=== PATIENT | male | born 1945 | race Caucasian/White ===

== ENCOUNTER 2020-08-21 10:44 | Emergency (ER) | payer MEDICARE, OTHER ==
[2020-08-21 12:56] LABS: RED BLOOD COUNT 4.73 M/UL (4.20-5.50); WHITE BLOOD COUNT 13.5 K/UL (4.5-11.0)
[2020-08-21 13:17] LABS: BUN/CREATININE RATIO 17 (0-10)
[2020-08-21] MEDS ORDERED: TESSALON PERLE100 MG PO (15:05)
[2020-08-21] MEDS ORDERED: PREDNISONE 20 M20 MG PO (15:05)
[2020-08-21] MEDS ORDERED: VENTOLIN HFA 66.7 GM INH (15:05)
== END 2020-08-21 15:35 | disposition home or self-care (01) ==
LOC: ER1 10:44
PROVIDERS: Physician Assistant
DX: J44.1 Chronic obstructive pulmonary disease with (acute) exacerbation (principal); N17.9 Acute kidney failure, unspecified; E87.6 Hypokalemia; Z20.822 Contact with and (suspected) exposure to COVID-19; E78.5 Hyperlipidemia, unspecified; F17.200 Nicotine dependence, unspecified, uncomplicated; Z88.5 Allergy status to narcotic agent
CPT/HCPCS: 0240U; 71046; 80053; 82550; 82553; 83874; 83880; 84484; 85025; 87081; 87880; 93005; 96374; 99284; J2930